=== PATIENT | male | born 1990 | race Caucasian/White ===

== ENCOUNTER 2020-08-01 13:42 | Outpatient (REF) | payer SELFPAY ==
--- OUTSIDE RECORDS SUMMARY | 2020-08-01 13:45 | XMS_ITS ---
:1990 Author Care Team Providers Name Role Phone Jaleesa Billy Primary Care Provider Unavailable Allergies Code Code System Name Reaction Severity Status Onset Haldol Muscle Cramps Severe Active 2015 Medications Name Status Start Date Stop Date ? ? acamprosate 333 mg tablet,delayed release Active ? Not available Take 2 tablets 3 times a day by oral route. atorvastatin Active ? Not available Chantix Starting Month Box 0.5 mg (11)-1 mg (42) tablets in dose pack Active ? Not available Starting Week: 0.5 mg once daily on day s 1-3 and 0.5 mg twice daily on days 4- 7. Continuing Weeks: 1 mg twice daily for a total of 12 weeks Depakote Active ? Not available Fish Oil Active ? Not available naltrexone 50 mg tablet Active ? Not avai lable Take 1 tablet every day by oral route for 7 days. Vivitrol Completed ? 07/28/2020 Vivitrol 380 mg intramuscular suspension,extended release Active ? Not available Inject 4 mL every 4 weeks by intramuscular route. Problems Name Status Onset Date Source ? Hypercholesterolemia Active 07/28/2020 ? Alcoholism Active 07/28/2020 ? Nicotine Dependence Active 07/28/2020 ? Procedures None recorded. Results Lab Results Date Name Specimen Result Interpretation Description Value Range Status Address ? 07/28/2020 Drug UR ? Amphetamines negative 1,000 Radha [address] [place] Screen, NG/mL NG/mL Health: Urine [address], [place] ? ? UR ? Benzodiazapines negative 200 Final [place] NG/mL NG/mL Health: [address], [place] ? ? UR ABNORMAL Buprenorphine negative 5 Final [place] NG/mL NG/mL Health: [address], [place] ? ? UR ? Cocaine negative 150 Final [place] Metabolite NG/mL NG/mL Health : [address], [place] ? ? UR ? Opiates negative 300 Final [place] NG/mL NG/mL Health: [address], [place] ? ? UR ? Oxycodone negative 300 Final [place] NG/mL NG/mL Health: [address], [place] ? ? UR ? Fentanyl negative 2 Final [place] NG/mL NG/mL Health: [address], [place] ? ? UR ? Ethyl Alcohol negative 10 Final [place] mg/dL mg/dL Health: [address], [place] ? ? UR ? Methadone negative 300 Final [place] Metabolite NG/mL NG/mL Health : [address], [place] ? ? UR ? Urine Creatinine 183.6 20 Final [place] mg/dL mg/dL Health: [address], [place] ? ? UR ? Urine pH 7.70 4.5-9. Final [place] 0 Health: [address], [place] ? ? UR ? Specific [place] 1.021 1.003- Final [place] 1.035 Health: [address], [place] Past Encounters 07/28/2020 Opioid Dependence; Alcoholism; Nicotine Dependence KHOA Fuller: [address] [place] [phone], Ph. Social History Tobacco Smoking Status Light Tobacco Smoker (1 Notes: : 2 PPW) cigarettes/d, starte d smoking again in rehab Vaccine List Vaccine Type COVID-19 vaccine, vector-nr, rS-Ad26, PF , 0.5 mL 07/16/2020 Plan of Care Reminders Provider Appointments None ? ? recorded. Lab None ? ? recorded. Referral None ? ? recorded. Procedures None ? ? recorded. Surgeries None ? ? recorded. Imaging None ? ? recorded. Vitals None recorded.
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
[2020-08-01 16:12] LABS: ALT 30 U/L (16-63); AST 25 U/L (15-37); Albumin 4.1 g/dL (3.4-5.0); Alkaline Phosphatase 65 U/L (46-116); Bilirubin, Direct 0.1 mg/dL (0.0-0.2); Bilirubin, Total 0.5 mg/dL (0.2-1.0); Total Protein 7.4 g/dL (6.4-8.2)
[2020-08-04 10:22] LABS: Hepatitis B Surface Ag Negative (Negative)
[2020-08-04 11:27] LABS: Hep B Core Antibody Negative (Negative)
[2020-08-04 11:53] LABS: Hepatitis C Ab w Rflx HCV PCR Negative (Negative)
[2020-08-04 12:02] LABS: HIV-1/2 Ag & Ab Screen Negative (Negative)
== END 2020-08-01 13:43 | disposition home or self-care (01) ==
LOC: NCHCN 13:42
PROVIDERS: Visit Provider Physician Assistant
DX: F10.20 Alcohol dependence, uncomplicated (principal); Z11.4 Encounter for screening for human immunodeficiency virus [HIV]
CPT/HCPCS: 80076; 86704; 86803; 87340; 87389

== ENCOUNTER 2020-12-23 08:26 | Emergency (ER) | payer MEDICAID, SELFPAY ==
[2020-12-23 08:30] VITALS: TEMP 37; O2SAT 94
--- NOTE | 2020-12-23 08:32 | ED.GENADUL_ITS ---
Discharge Plan Disposition Patient Disposition: OTHER Condition: Improving Discharge Details Chief Complaint: GenMedical Clinical Impression: Alcohol intoxication ED Provider: Romero Asencio Discharge Instructions Instructions: Alcohol Intoxication (ED) Additional Instructions: You underwent a medical screening examination. You are medically stable for discharge to [facility]. We would anticipate progressive sobering up over approximately 4 to 8 hours time. Your fingerstick glucose was 98 in the emergency department. Medical Decision Making This is a 30-year-old male who presents with police after being found publicly intoxicated with an alcohol level of 0.322. He presents for medical screening prior to transport to nursing home. Patient's fingerstick glucose is 98. He has not fallen or hurt himself. His exam is reassuring and notable for primarily for mildly slurred speech. He does take clonidine and Adderall, denies overdose or thoughts of harming himself. He is medically stable for transfer to nursing home. I do anticipate progressive sobering over hours time, if this does not occur, would consider repeat evaluation. HPI General Mode of arrival: ambulatory . Date/Time Provider Initiated Documentation: 12/23/20 08:27 . Limitations to Documentation: other (Intoxicated) . Information obtained by: police . History of Present Illness 30 year old M presents to the emergency department with the chief complaint of Intoxication, with police, described as moderate, Patient started experiencing this unknown and it has been constant. No relieving factors improve symptom(s), No exacerbating factors reported . Patient notes no other symptoms. and other (Denies to me injury or fall.). Patient did receive the following treatments prior to arrival, none Review of Systems Narrative: Patient states no injury or fall. Denies headache, chest, abdominal pain. ON LICENSE OF [facility] Social History Smoking risk assessment performed?: No Exam Narrative Exam Narrative: GEN: awake, alert, interactive. Accompanied by police. HEAD: Normocephalic, atraumatic ENT: Mucous membranes moist, oropharynx unremarkable, External ear exam unremarkable EYES: PERRL, EOMI NECK: Full ROM, no DARSHAN, no menigismus CHEST/RESP: Nontender, clear to auscultation bilateral, no wheeze/rhonchi/rales CARDIOVASCULAR: RRR, no murmur, rub chucho. 2+ Rad pulse bilateral ABDOMEN: Soft, nontender, no mass. +Bowel sounds EXT: Full ROM, no edema, no rash Neuro: Grossly normal neurologic exam, conversant, interactive. Psych: Speech but slightly slurred., The patient's thoughts are congruent
== END 2020-12-23 08:51 | disposition other institution (70) ==
PROVIDERS: Emergency Provider Emergency Medicine
DX: F10.129 Alcohol abuse with intoxication, unspecified (principal)
CPT/HCPCS: 36416; 82962; 99285; 99283

== ENCOUNTER 2020-12-24 20:07 | Emergency (ER) | payer MEDICAID, SELFPAY ==
[2020-12-24 20:05] VITALS: BP 160/91; PULSE 119; RESP 18; TEMP 37.4; O2SAT 96
[2020-12-24 20:44] LABS: Abs Immature Grans 0.01 10^3/uL (0.0-0.06); Absolute Basophil Count 0.03 10^3/uL (0.0-0.2); Absolute Eosinophil Count 0.05 10^3/uL (0.0-0.7); Absolute Lymphocyte Count 1.65 10^3/uL (1.2-3.4); Absolute Monocyte Count 0.83 10^3/uL (0.1-0.8); Absolute Neutrophil Count 4.44 10^3/uL (1.2-6.7); Basophils % 0.4; Eosinophils % 0.7; HCT 42.1 % (40.0-50.0); HGB 14.8 g/dL (13.5-17.5); Immature Grans % 0.1; Lymphocytes % 23.5; MCHC 35.2 % (32.0-36.0); MCV 88.3 fL (80-95); MPV 9.3 fL (8.0-11.0); Monocytes % 11.8; Neutrophils % 63.5; Nucleated RBC 0 %; Platelet Count 178 10^3/uL (130-400); RBC 4.77 10^6/uL (4.36-5.78); RDW 12.4 % (11.8-14.1); RDW-SD 40.4 fL; WBC 7.01 10^3/uL (4.4-10.8)
--- NOTE | 2020-12-24 20:48 | W.ED.GENAD ---
Discharge Plan Disposition Patient Disposition: HOME Condition: Stable Discharge Details Chief Complaint: PsychEval Clinical Impression: Alcohol intoxication Primary Care Provider: Unknown,Unknown ED Provider: Bhavik Allan Home Meds and New Rx's Prescriptions: Continued atorvastatin 20 mg Tablet 20 mg PO QHS RF: 0 dextroamphetamine-amphetamine [Adderall] 20 mg Tablet 20 mg PO BID RF: 0 Discharge Instructions Additional Instructions: you were seen by mental health once you were sober enough to speak with them and are setting you up with outpatient services do a daily call in check in with [facility] at 11am [phone] if you feel more ill, have severe thoughts of self harm return to the emergency department Medical Decision Making <KHOA Silvestre - Last Filed: 12/25/20 08:14> Patient is a 30-year-old male presenting today with chief complaint of suicidal ideation. Patient was seen here yesterday for public intoxication. Patient is medically stable to transfer to skilled nursing at this time. He comes in today with chief complaint of suicidal ideation and attempt. He states that he attempted to commit suicide via cutting his left arm. Has a very superficial abrasion on the left arm. States that his knife was too dull. He states that typically he uses Adderall and that does help calm him down but he has not been taking it for the past 3 days. He denies any homicidal ideation. He reports that he has a history of depression and anxiety and that the symptoms have progressively been increasing recently. Sounds to be precipitated by recent break-up with significant other. Reports that he does not know where he is going to be living now. On exam, patient appears very anxious. He is tachycardic and hypertensive. He is monitoring it frequently and making repetitive statements about everyone. Appears to have some hallucinations which are likely auditory. However, he is not reporting these currently. This is more just based on physical exam findings. He does have a very superficial abrasion on the left forearm. No active bleeding. No deep wounds. He denies any trauma. Do not see any objective evidence to suggest acute trauma. Patient does not appear septic. He denies any recent fevers or chills. No rash. Denies any illicit drug use. States that he is feeling physically well. Patient is agitated, appears very guarded and paranoid. Concerned that patient is at risk to himself. He states that typically his Adderall works well for him and that his current symptoms can come on after missing dosing. We will give a dose of Adderall as well as Ativan. Patient is asking for anxiety lytic. I am concerned for potential EtOH or drugs on board. Will consult with mental health and obtain baseline labs. Discussed plan with the patient who is in agreement. Patient is becoming much more anxious. Is pacing and repeating himself. Patient is requesting shot to calm me down. He does have an allergy to Haldol. Will give IM Zyprexa. Patient responded well to the Zyprexa. Is resting comfortably. Zyprexa Is not given as a restraint, was given at patient's request to help prevent him from escalating. Labs reviewed. No leukocytosis. Stable H&H. Potassium was 3.1, will replenish this orally. T bili and AST are slightly elevated. UDS concerning for amphetamines. Alcohol 171. As the patient has alcohol on board he is not able to be assessed by mental health at this time. Patient still sleeping after Zyprexa. Patient is in safety attire, CPSO at bedside. At the end of my shift, care transition to Dr. Hernandez with evaluation from mental health and disposition pending. <Bhavik Allan MD - Last Filed: 12/25/20 12:58> pt signed out to me to reassess when clinically sober. He is sleeping on my assessment but awakens to voice easily. He is caox4 and when asked if he still has suicidal ideations he doesnt give me a straight answer. HE is not agitated, I offerd for him to have coffee and food and will have mental health evaluate mental health evaluated, have set up a safety plan with him and will follow up as outpatient, continues to have no si/hi here. Will also meet with elementary instructional coach here. He is stable for d/c, return precautions given HPI <KHOA Silvestre - Last Filed: 12/25/20 08:14> General Mode of arrival: EMS. Date/Time Provider Initiated Documentation: 12/24/20 20:11. Limitations to Documentation: altered mental status. Information obtained by: patient, EMS, RN notes reviewed and old records reviewed. HPI Narrative: Patient is a 30-year-old gentleman presenting today with chief complaint of suicidal ideation and suicide attempt. He reports this progressively been worsening over time. History of anxiety and depression. Patient has not been taking his Adderall, states that typically this does help to calm him down significantly. Reports that he is plans to kill himself with a sharper knife. Reports that the knife he attempted to cut himself with earlier was too dull. Patient does not have stable living environment currently. History is difficult to ascertain secondary to current mental state. Related Data Home Medications Medication Instructions Recorded Confirmed atorvastatin 20 mg PO QHS 12/24/20 12/24/20 dextroamphetamine-amphetamine 20 mg PO BID 12/24/20 12/24/20 [Adderall] Allergies Allergy/AdvReac Type Severity Reaction Status Date / Time haloperidol [From Haldol] AdvReac Intermediate Other (See Unverified 12/24/20 20:09 Comment) General Stated Complaint: PsychEval TARAN: 2 Review of Systems <KHOA Silvestre - Last Filed: 12/25/20 08:14> Unobtainable due to mental status PFSH <KHOA Silvestre - Last Filed: 12/25/20 08:14> Social History Smoking/Tobacco Use Status: Current every day Tobacco Type: cigarettes and smokeless tobacco Smoking risk assessment performed?: Yes Alcohol Intake: current Do you feel safe at home: No Exam <KHOA Silvestre - Last Filed: 12/25/20 08:14> Const General: well developed, well groomed, in distress moderate, anxious and intoxicated appearing Nutritional Appearance: average body habitus and well nourished Orientation: alert, awake and oriented x3 HENMT Head: normal to inspection, no palpable skull fracture, normocephalic and atraumatic Face and sinus: normal facial exam Mouth: oral mucosae normal Eyes General: appearance normal, both eyes and all related structures Resp Effort & Inspection: normal respiratory effort, able to speak in complete sentences and no respiratory distress Auscultation: clear to auscultation bilaterally, no rales, no rhonchi and no wheezes Cardio Rate: regular rate Rhythm: regular rhythm Heart Sounds: S1 normal and S2 normal Skin General skin exam: no rashes or lesions noted Trauma: no lacerations or abrasions Neuro General: patient alert and patient awake Cognition: normal cognition Speech: speech normal Gait: normal gait Psych Appearance: grossly normal and well kempt Speech and Movement: agitated Mood: anxious mood, paranoid and labile mood Affect: anxious affect and irritable affect Attitude: guarded Thought Content: suicidality Insight: limited Judgment: limited Course <KHOA Silvestre - Last Filed: 12/25/20 08:14> Vital Signs Vital signs: Vital Signs Temperature 37.4 C 12/24/20 20:05 Pulse 119 H 12/24/20 20:05 Respiratory Rate 18 12/24/20 20:05 Blood Pressure 160/91 H 12/24/20 20:05 Pulse Oximetry 96 12/24/20 20:05 Temperature 37.4 C 12/24/20 20:05 Pulse 119 H 12/24/20 20:05 Respiratory Rate 18 12/24/20 20:05 Respiratory Effort Non-Labored 12/24/20 20:10 Blood Pressure 160/91 H 12/24/20 20:05 Pulse Oximetry 96 12/24/20 20:05 Pain Level 0 12/24/20 20:05 Lab/Test Results Lab/Test Results: Laboratory Tests Range/Units 12/24/20 20:25 WBC (4.4-10.8) 10^3/uL 7.01 RBC (4.36-5.78) 10^6/uL 4.77 Hgb (13.5-17.5) g/dL 14.8 Hct (40.0-50.0) % 42.1 MCV (80-95) fL 88.3 MCH (27.0-33.0) pg 31.0 MCHC (32.0-36.0) % 35.2 RDW (11.8-14.1) % 12.4 Plt Count (130-400) 10^3/uL 178 MPV (8.0-11.0) fL 9.3 Immature Gran % 0.1 Neutrophils % 63.5 Lymphocytes % 23.5 Monocytes % 11.8 Eosinophils % 0.7 Basophils % 0.4 Nucleated RBC % % 0 Absolute Neutrophils (1.2-6.7) 10^3/uL 4.44 Absolute Lymphocytes (1.2-3.4) 10^3/uL 1.65 Absolute Monocytes (0.1-0.8) 10^3/uL 0.83 H Absolute Eosinophils (0.0-0.7) 10^3/uL 0.05 Absolute Basophils (0.0-0.2) 10^3/uL 0.03 Sign Out <KHOA Silvestre - Last Filed: 12/25/20 08:14> Sign Out Data: Sign Out Comment: Care transition to Dr. Hernandez for disposition pending. Patient came in actively suicidal. Patient is very anxious and altered. He was requesting anxiolytic and antipsychotic. Received 10 mg IM Zyprexa. Sleeping currently. Alcohol on board, will need to be evaluated by mental health once sober. Last updated by Milly Le PA at 12/25/20 00:25 Sign Out Comment: Has slept all night after Zyprexa. Needs mental health eval once awake. Last updated by Alec Hernandez MD at 12/25/20 07:49 PAWSS <KHOA Silvestre - Last Filed: 12/25/20 08:14> Have you Been Recently Intoxicated or Drunk Within the Last 30 days?: Yes Have you Ever Experienced Previous Episodes of Alcohol Withdrawal?: Yes Have you ever Experienced Withdrawal Seizures?: Unable to Obtain Have you ever Experienced Delirium Tremens(DT)s?: Unable to Obtain Have you ever undergone Alcohol Rehabilitation Treatment (i.e, inpt ot outpatient treatment programs)?: Yes Have you ever Experienced Blackouts?: Yes Have you ever Combined Alcohol with other Downers within the last 90 days?: Yes Have you ever Combined Alcohol with any other Substance of Abuse during the last 90 days?: Yes Positive Blood Alcohol level on Presentation? [PCS.BAL]: Yes Evidence of Increased Autonomic Activity (i.e. HR>120, tremor, sweating, agitation, nausea)?: Yes Result: 8
[2020-12-24 20:55] LABS: Bilirubin Negative (Negative); Blood Trace-intact (Negative); Clarity Clear (Clear); Glucose Negative (Negative); Ketones 15 mg/dL (Negative); Leukocyte Esterase Negative (Negative); Nitrite Negative (Negative); Urobilinogen 0.2 EU/dL (Up TO 0.2); pH 6.5 (5-8)
[2020-12-24] MEDS: LORazepam 1 MG TAB PO (20:55)
[2020-12-24 21:00] LABS: ALT 47 U/L (16-63); AST 59 U/L (15-37); Albumin 4.3 g/dL (3.4-5.0); Alkaline Phosphatase 50 U/L (46-116); Anion Gap 12.3 mmol/L (3-11); BUN 8 mg/dL (7-18); Bilirubin, Total 1.3 mg/dL (0.2-1.0); CO2 27.7 mmol/L (21.0-32.0); Calcium 8.8 mg/dL (8.5-10.1); Chloride 98 mmol/L (98-107); ETHANOL BLOOD 171.6 mg/dL (<10); Glucose 132 mg/dL (74-106); Potassium 3.1 mmol/L (3.5-5.1); Sodium 138 mmol/L (136-145); Total Protein 8.3 g/dL (6.4-8.2)
[2020-12-24 21:05] LABS: Bacteria Negative HPF (Negative); C & S Indicated? No; Crystals Negative HPF (Negative); Epithelial Cells Negative HPF (Negative); Mucus Negative (Negative); RBC Negative HPF (0-2); WBC 0-2 HPF (0-5)
[2020-12-24 21:12] LABS: Salicylate < 2.8 mg/dL (<2.8)
[2020-12-24 21:15] LABS: Acetaminophen < 2 ug/mL (10-30)
[2020-12-24] MEDS: OLANZapine 10 MG VIAL IM (21:15)
[2020-12-24 21:27] LABS: *AMPHETAMINES SCREEN URINE Positive (Negative); *BARBITURATES SCREEN URINE Negative (Negative); *BENZODIAZEPINES SCREEN URINE Negative (Negative); Cannabinoids THC Negative (Negative); Cocaine Screen,Urine Negative (Negative); METHADONE URINE SCREEN Negative (Negative); OPIATES URINE SCREEN Negative (Negative)
[2020-12-24 21:29] LABS: Tricyclic Antidepressants Negative (Negative)
[2020-12-25 08:26] VITALS: BP 125/84; PULSE 90; RESP 17; TEMP 36.3; O2SAT 98
--- NOTE | 2020-12-25 10:25 | NUR.NOTE ---
Nursing Note: Per Lauren Sapp pt supposed to be going to [facility] and be there by noon. Gave patient his phone so that he can call [facility] to see if he has left. Lauren will call Care management to see if they can get him a ride if needed. Tara Forde
--- NOTE | 2020-12-25 11:39 | PDOC.MHCN_ITS ---
Date of service: 12/25/20 Time of Service: 11:39 Mental Health Crisis Note Presenting Issue How did you arrive at the ED and why did you come: Pt arrived to the ED on 12.24.2020 reporting he did not feel safe at home and was intoxicated. He was held for a MH evaluation that can happen once he was sober. Precipitating Factors Pt is evasive stating he is not suicidal at this time and it would depend on what was happening if he were actually suicidal or not. He denied HI. he is evasive as well about whether he is having auditory or visual hallucinations. It is reported that he does experience they things when he is under the influence of ETOH however, he does not appear to be responding to any internal stimuli at the time of the assessment nor does he seem distracted when asked questions. Disposition BEHAVIOR: Pt is moderately engaged in the assessment. He does not want to share the disturbing news he heard yesterday but does say unless I'm hearing things. He shows fair insight and judgment at this time. EYE CONTACT: Pt makes fair eye contact. MOOD: He reports his mood is okay. AFFECT: Pt's affect is flat. APPETITE: Pt reported his appetite is not good. SLEEP(trouble falling/staying asleep: Pt reported his sleep has not been good. Plan Pt was supposed to go to [facility] in [place] today for noon. When he called to let them know he would be late he was told that someone called to cancel his intake 3 days ago stating he was being admitted to the hospital. He does not know who did this. Consequently we decided to safety plan back to the community as he does not feel he can wait an unknown length of time to get into treatment and denied imminent risk of harm to self or others. He reported he has to sell some things to get his car out of impound. Pt will do daily check in calls with [facility] at 11am daily and will outreach as needed as well. He will meet with a [employer]line [employer] Representative to discuss other rehab options before discharge today. This plan was shared with the attending as well as care management. Signature Clinician's Name/Title: Lauren Sapp MS, [facility] Emergency Services Clinician, [facility]
[2020-12-25] MEDS: Acetaminophen 500 MG TAB 1000 MG PO (11:48)
[2020-12-25 13:00] VITALS: BP 134/83; PULSE 86; RESP 17; TEMP 37; O2SAT 98
--- NOTE | 2020-12-25 13:25 | CMPROGNOTE_ITS ---
- If Service Date Differs Date of service: 12/25/20 Time of Service: 13:25 Care Management Progress Note DISCHARGE NOTE: Preston presents in the ED for alcohol intoxication and suicidal ideation. He meets with Lauren, [facility] Crisis Screener, for an evaluation and is deemed safe to return home. He will do daily check-in calls with [facility] and is being connected with a reading recovery teacher at [facility]. Preston is transported home via [facility].
--- NOTE | 2020-12-25 13:25 | PDOC.ERCMPRO ---
- If Service Date Differs Date of service: 12/25/20 Time of Service: 13:25 Care Management Progress Note DISCHARGE NOTE: Preston presents in the ED for alcohol intoxication and suicidal ideation. He meets with Lauren, [facility] Crisis Screener, for an evaluation and is deemed safe to return home. He will do daily check-in calls with [facility] and is being connected with a curriculum coach at [facility]. Preston is transported home via [facility].
== END 2020-12-25 13:52 | disposition home or self-care (01) ==
PROVIDERS: Emergency Provider Emergency Medicine
DX: F10.129 Alcohol abuse with intoxication, unspecified (principal); R45.851 Suicidal ideations; F32.9 Major depressive disorder, single episode, unspecified; F41.9 Anxiety disorder, unspecified
CPT/HCPCS: 80053; 80307; 96372; 99284; 80320; 80329; 81003; 81015; 85025